=== PATIENT | male | born 1935 | race Caucasian/White ===

== ENCOUNTER 2017-09-05 09:08 | Inpatient (IN) | payer OTHER ==
[~2017-09-05] VITALS: Ht 167.6 cm; Wt 76.2 kg
[2017-09-05 10:05] LABS: HEMATOCRIT 47.4 % (38.0-50.0); HEMOGLOBIN 16.6 G/DL (12.5-16.6); MCH 34.2 PG (29.0-34.0); MCV 97.7 FL (86-99); PLATELET COUNT 194 K/uL (156-360); RBC DIS.WIDTH-SD 43.5 % (39-53); RED BLOOD COUNT 4.85 M/uL (4.00-5.50); WHITE BLOOD COUNT 8.8 K/uL (4.1-10.2)
[2017-09-05 10:16] LABS: CHLORIDE 100 mEq/L (99-109); POTASSIUM 4.5 mEq/L (3.7-5.4); SODIUM 132 mEq/L (136-147)
[2017-09-05 10:17] LABS: GLUCOSE 121 mg/dL (70-99)
[2017-09-05 10:21] LABS: CREATININE 1.1 mg/dL (0.6-1.3); GFR ESTIMATE (CALCULATED) > 59 mL/min/ (58.99-99999)
[2017-09-05 10:22] LABS: UREA NITROGEN (BUN) 19 mg/dL (9-23)
[2017-09-05 10:25] LABS: TROP-I INTERPRETATION NEGATIVE; TROPONIN-I 0.03 ng/mL (0.0-0.30)
[2017-09-05] MEDS ORDERED: TOPROL XL50 MG PO (12:32)
[2017-09-05] MEDS ORDERED: LISINOPRIL-HCT1 EAC3 PO (12:33)
[2017-09-05] MEDS ORDERED: IMDUR30 MG PO (12:34)
[2017-09-05] MEDS ORDERED: AMLODIPINE BESY10 MG PO (12:34)
[2017-09-05] MEDS ORDERED: IMDUR120 MG PO (12:34)
[2017-09-05] MEDS ORDERED: LIPITOR80 MG PO (12:35)
[2017-09-05] MEDS ORDERED: ACID CONTROL150 MG PO (12:36)
[2017-09-05] MEDS ORDERED: MAGNESIUM250 MG PO (12:36)
[2017-09-05] MEDS ORDERED: ASPIR 8181 M1 PO (12:36)
[2017-09-05] MEDS ORDERED: CENTRUM SILVER1 EAC5 PO (12:37)
[2017-09-05] MEDS ORDERED: FIBER THERAPY500 MG PO (12:38)
[2017-09-05 13:07] LABS: HDL CHOLESTEROL 42 MG/DL (Desirable>=40); LDL CHOLESTEROL 56 mg/dL (Desirable<100); NON-HDL CHOLESTEROL 84 mg/dL (Desirable<160); TOTAL CHOLESTEROL 126 mg/dL (Desirable<200); TRIGLYCERIDES 140 MG/DL (Normal: <150)
[2017-09-05 14:51] LABS: TROP-I INTERPRETATION INDETERMINATE; TROPONIN-I 0.54 ng/mL (0.0-0.30)
[2017-09-05 17:10] LABS: INTER. NORMALIZED RATIO 1.1
[2017-09-05 17:13] LABS: PTT 27.7 SEC (25-37)
[2017-09-05 17:15] VITALS: BP 160/84
[2017-09-05 19:25] VITALS: BP 162/85
[2017-09-05 20:46] LABS: HEMATOCRIT 46.3 % (38.0-50.0); HEMOGLOBIN 16.3 G/DL (12.5-16.6); MCH 34.7 PG (29.0-34.0); MCHC 35.2 G/DL (30.0-36.0); MCV 98.5 FL (86-99); PLATELET COUNT 204 K/uL (156-360); RBC DIS.WIDTH-CV 12.1 % (11.8-14.6); RBC DIS.WIDTH-SD 43.8 % (39-53); WHITE BLOOD COUNT 9.9 K/uL (4.1-10.2)
[2017-09-05 20:49] LABS: TROP-I INTERPRETATION POSITIVE; TROPONIN-I 0.64 ng/mL (0.0-0.30)
[2017-09-05 23:34] VITALS: BP 144/76
[2017-09-06 02:03] LABS: TROP-I INTERPRETATION INDETERMINATE; TROPONIN-I 0.48 ng/mL (0.0-0.30)
[2017-09-06 05:03] VITALS: BP 135/74
[2017-09-06 07:33] LABS: HEMATOCRIT 49.3 % (38.0-50.0); HEMOGLOBIN 17.1 G/DL (12.5-16.6); MCH 33.7 PG (29.0-34.0); MCHC 34.7 G/DL (30.0-36.0); MCV 97.2 FL (86-99); PLATELET COUNT 186 K/uL (156-360); RBC DIS.WIDTH-SD 43.1 % (39-53); RED BLOOD COUNT 5.07 M/uL (4.00-5.50); WHITE BLOOD COUNT 8.4 K/uL (4.1-10.2)
[2017-09-06 07:38] LABS: INTER. NORMALIZED RATIO 1.1
[2017-09-06 07:40] LABS: PTT 98.2 SEC (25-37)
[2017-09-06 08:01] LABS: CHLORIDE 97 MEQ/L (99-109); CREATININE 1.1 MG/DL (0.6-1.3); GFR ESTIMATE (CALCULATED) > 59 mL/min/ (58.99-99999); GLUCOSE 105 mg/dL (70-99); POTASSIUM 4.2 MEQ/L (3.7-5.4); SODIUM 131 MEQ/L (136-147); UREA NITROGEN (BUN) 19 mg/dL (9-23)
[2017-09-06 08:04] VITALS: BP 181/85
[2017-09-06 11:38] VITALS: BP 119/63
[2017-09-06 15:51] VITALS: BP 109/64
[2017-09-06 19:23] VITALS: BP 127/66
[2017-09-06 22:20] VITALS: BP 123/65
[2017-09-07] VITALS (7 sets, daily range): BP systolic 106–157; BP diastolic 56–80
[2017-09-07 02:28] LABS: HEMATOCRIT 46.4 % (38.0-50.0); HEMOGLOBIN 16.7 G/DL (12.5-16.6); MCH 35.3 PG (29.0-34.0); MCV 98.1 FL (86-99); PLATELET COUNT 181 K/uL (156-360); RBC DIS.WIDTH-SD 43.9 % (39-53); RED BLOOD COUNT 4.73 M/uL (4.00-5.50); WHITE BLOOD COUNT 8.8 K/uL (4.1-10.2)
[2017-09-08 04:55] VITALS: BP 143/80
[2017-09-08 06:01] LABS: HEMATOCRIT 45.1 % (38.0-50.0); HEMOGLOBIN 15.7 G/DL (12.5-16.6); MCH 34.4 PG (29.0-34.0); MCHC 34.8 G/DL (30.0-36.0); MCV 98.9 FL (86-99); PLATELET COUNT 157 K/uL (156-360); RBC DIS.WIDTH-CV 12.2 % (11.8-14.6); RBC DIS.WIDTH-SD 44.4 % (39-53); RED BLOOD COUNT 4.56 M/uL (4.00-5.50); WHITE BLOOD COUNT 8.9 K/uL (4.1-10.2)
[2017-09-08 06:10] LABS: CHLORIDE 101 MEQ/L (99-109); CREATININE 1.2 MG/DL (0.6-1.3); GFR ESTIMATE (CALCULATED) > 59 mL/min/ (58.99-99999); GLUCOSE 97 mg/dL (70-99); POTASSIUM 4.2 MEQ/L (3.7-5.4); SODIUM 132 MEQ/L (136-147); UREA NITROGEN (BUN) 19 mg/dL (9-23)
[2017-09-08 08:34] VITALS: BP 176/93
[2017-09-08 09:39] VITALS: BP 141/75
[2017-09-08 11:57] VITALS: BP 124/64
[2017-09-08] MEDS ORDERED: NITROSTAT0.4 MG SL (12:02)
[2017-09-08] MEDS ORDERED: CLOPIDOGREL75 MG PO (12:02)
== END 2017-09-08 12:57 | disposition home or self-care (01) | DRG 246 ==
LOC: EME 09:08 → EDOF 11:43 → ENRESERV 11:50 → EDOF 12:27 → ENRESERV 14:39 → EDOF 16:28 → 4EAST 16:28 → ENRESERV 16:43 → 4EAST 17:34
PROVIDERS: Emergency Medicine; Hospitalist; Physician Assistant
DX: T82.857A Stenosis of other cardiac prosthetic devices, implants and grafts, initial encounter (principal); I21.4 Non-ST elevation (NSTEMI) myocardial infarction; I25.82 Chronic total occlusion of coronary artery; E87.1 Hypo-osmolality and hyponatremia; I25.810 Atherosclerosis of coronary artery bypass graft(s) without angina pectoris; I25.10 Atherosclerotic heart disease of native coronary artery without angina pectoris; I42.9 Cardiomyopathy, unspecified; I10 Essential (primary) hypertension; E78.5 Hyperlipidemia, unspecified; I44.7 Left bundle-branch block, unspecified; K21.9 Gastro-esophageal reflux disease without esophagitis; Y83.2 Surgical operation with anastomosis, bypass or graft as the cause of abnormal reaction of the patient, or of later complication, without mention of misadventure at the time of the procedure; I25.2 Old myocardial infarction; Z79.82 Long term (current) use of aspirin; Z87.891 Personal history of nicotine dependence
CPT/HCPCS: 71046; 80048; 80061; 84484; 85027; 85347; 85610; 85730; 93005; 94799; 99281; 99285; C1725; C1769; C1874; C1887; J0153; J0583; J1644; J2250; J3010; J7030; S0028

== ENCOUNTER 2018-01-23 07:12 | Inpatient (IN) | payer OTHER ==
[~2018-01-23] VITALS: Ht 167.6 cm; Wt 77.0 kg
[~2018-01-23 07:12] MED LIST: ACID CONTROL150 MG PO; AMLODIPINE BESY10 MG PO; ASPIR 8181 M1 PO; CENTRUM SILVER1 EAC5 PO; CLOPIDOGREL75 MG PO; FIBER THERAPY500 MG PO; IMDUR120 MG PO; IMDUR30 MG PO; LIPITOR80 MG PO; LISINOPRIL-HCT1 EAC3 PO; MAGNESIUM250 MG PO; NITROSTAT0.4 MG SL; TOPROL XL50 MG PO
[2018-01-23 08:05] LABS: HEMATOCRIT 45.5 % (38.0-50.0); HEMOGLOBIN 16.3 G/DL (12.5-16.6); MCH 34.7 PG (29.0-34.0); MCHC 35.8 G/DL (30.0-36.0); MCV 96.8 FL (86-99); PLATELET COUNT 185 K/uL (156-360); RBC DIS.WIDTH-CV 12.5 % (11.8-14.6); RBC DIS.WIDTH-SD 44.7 % (39-53); WHITE BLOOD COUNT 8.1 K/uL (4.1-10.2)
[2018-01-23 08:28] LABS: TROP-I INTERPRETATION NEGATIVE; TROPONIN-I 0.02 ng/mL (0.0-0.30)
[2018-01-23 08:30] LABS: CHLORIDE 100 MEQ/L (99-109); GFR ESTIMATE (CALCULATED) > 59 mL/min/ (58.99-99999); GLUCOSE 125 mg/dL (70-99); POTASSIUM 4.1 MEQ/L (3.7-5.4); SODIUM 132 MEQ/L (136-147); UREA NITROGEN (BUN) 20 mg/dL (9-23)
[2018-01-23] MEDS ORDERED: PLAVIX75 MG PO (09:44)
[2018-01-23] MEDS ORDERED: NITROSTAT0.4 MG SL (09:47)
[2018-01-23 11:05] VITALS: BP 141/67
[2018-01-23 15:28] VITALS: BP 122/67
[2018-01-23 15:37] LABS: TROP-I INTERPRETATION POSITIVE; TROPONIN-I 1.19 ng/mL (0.0-0.30)
[2018-01-23 19:05] VITALS: BP 144/76
[2018-01-23 22:01] LABS: TROP-I INTERPRETATION POSITIVE
[2018-01-23 22:04] LABS: TROPONIN-I 0.79 ng/mL (0.0-0.30)
[2018-01-23 23:50] VITALS: BP 129/79
[2018-01-24 04:59] VITALS: BP 140/80
[2018-01-24 05:59] LABS: CHLORIDE 100 MEQ/L (99-109); GFR ESTIMATE (CALCULATED) > 59 mL/min/ (58.99-99999); GLUCOSE 99 mg/dL (70-99); POTASSIUM 4.2 MEQ/L (3.7-5.4); SODIUM 134 MEQ/L (136-147); UREA NITROGEN (BUN) 19 mg/dL (9-23)
[2018-01-24 08:15] VITALS: BP 152/82
[2018-01-24 12:03] VITALS: BP 158/79
[2018-01-24 15:37] VITALS: BP 120/57
[2018-01-24 23:45] VITALS: BP 132/66
[2018-01-25 03:50] VITALS: BP 135/74
[2018-01-25 08:45] VITALS: BP 174/89
[2018-01-25 09:55] VITALS: BP 145/79
[2018-01-25 12:51] VITALS: BP 118/73
[2018-01-25 20:10] VITALS: BP 133/72
[2018-01-26 00:16] VITALS: BP 114/59
[2018-01-26 03:00] VITALS: BP 130/70
[2018-01-26 08:20] VITALS: BP 137/82
== END 2018-01-26 12:08 | disposition home or self-care (01) | DRG 281 ==
LOC: EME 07:12 → EDOF 09:22 → ENRESERV 09:25 → 4SOUTH 10:34 → ENPENDDIS 01-26 → 4SOUTH 01-26 12:08
PROVIDERS: Emergency Medicine; Family Medicine
PROC: 4A023N7 Measurement of Cardiac Sampling and Pressure, Left Heart, Percutaneous Approach (ICD-10-PCS; principal; 2018-01-25)
PROC: B2111ZZ Fluoroscopy of Multiple Coronary Arteries using Low Osmolar Contrast (ICD-10-PCS; principal; 2018-01-25)
PROC: B2131ZZ Fluoroscopy of Multiple Coronary Artery Bypass Grafts using Low Osmolar Contrast (ICD-10-PCS; principal; 2018-01-25)
DX: I21.4 Non-ST elevation (NSTEMI) myocardial infarction (principal); I42.9 Cardiomyopathy, unspecified; I25.82 Chronic total occlusion of coronary artery; E87.1 Hypo-osmolality and hyponatremia; I25.110 Atherosclerotic heart disease of native coronary artery with unstable angina pectoris; I25.810 Atherosclerosis of coronary artery bypass graft(s) without angina pectoris; I44.7 Left bundle-branch block, unspecified; K21.9 Gastro-esophageal reflux disease without esophagitis; E78.5 Hyperlipidemia, unspecified; Z95.5 Presence of coronary angioplasty implant and graft; Z79.82 Long term (current) use of aspirin; Z82.49 Family history of ischemic heart disease and other diseases of the circulatory system; Z79.01 Long term (current) use of anticoagulants; I10 Essential (primary) hypertension; Z86.73 Personal history of transient ischemic attack (TIA), and cerebral infarction without residual deficits; Z87.891 Personal history of nicotine dependence
CPT/HCPCS: 71045; 80048; 84484; 85027; 85347; 93005; 99281; 99285; C1769; C1887; G0378; J1644; J1650; J2250; J3010; J7040